=== PATIENT | male | born 2000 | race Caucasian/White ===

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

== ENCOUNTER → 2022-03-24 | Outpatient (CLI) | payer BC ==
[2022-03-27 00:10] LABS: CHLAMYDIA TRACHOMATIS, NAA Negative (Negative)
== END | disposition home or self-care (01) ==
LOC: LAB SHORT 16:30 → LAB 16:30
PROVIDERS: Nurse Practitioner Acute Care
DX: Z11.3 Encounter for screening for infections with a predominantly sexual mode of transmission (principal)
CPT/HCPCS: 87491; 87591

== ENCOUNTER → 2022-04-29 | Outpatient (CLI) | payer BC | END | disposition home or self-care (01) | LOC: LAB SHORT 14:00 → LAB 14:00 | DX: J02.9 Acute pharyngitis, unspecified (principal) | CPT/HCPCS: 87081 ==

== ENCOUNTER → 2023-07-30 | Outpatient (CLI) | payer BC ==
[2023-08-02 11:27] LABS: APTIMA MEDIA TYPE Urine; C. TRACHOMATIS BY TMA Negative (Negative); N. GONORRHOEAE BY TMA Negative (Negative); SPECIMEN SOURCE Urine
== END | disposition home or self-care (01) ==
LOC: LAB SHORT 17:41 → LAB 17:41
PROVIDERS: Nurse Practitioner Family
DX: N34.1 Nonspecific urethritis (principal)
CPT/HCPCS: 87491; 87591

== ENCOUNTER 2023-08-20 19:07 | Emergency (ER) | payer OTHER, BC ==
[~2023-08-20] VITALS: Ht 177.8 cm; Wt 77.6 kg
[2023-08-21 00:43] VITALS: BP 142/70
== END 2023-08-21 00:45 | disposition home or self-care (01) ==
LOC: ER 19:07
DX: S62.617A Displaced fracture of proximal phalanx of left little finger, initial encounter for closed fracture (principal); M25.552 Pain in left hip; S50.811A Abrasion of right forearm, initial encounter; V28.49XA Other motorcycle driver injured in noncollision transport accident in traffic accident, initial encounter